=== PATIENT | male | born 1960 | race Caucasian/White ===

== ENCOUNTER → 2016-10-30 | Outpatient (CLI) | payer OTHER ==
--- NOTE | 2016-10-30 13:53 | RAD ---
APPROVED REPORT Test Type: Exercise Stress Nurse/Tech: KLAUS Baig Test Indications: Intermittent chest pain, known CV risk factors, including HTN Cardiac History: See Electronic Medical Record, Hypertension, Family history Medications: See Electronic Medical Record Medical History: See Electronic Medical Record Resting ECG: SR Resting Heart Rate: 68 bpm Resting Blood Pressure: 122/78mmHg Pretest Chest Pain: No chest pain Nurse/Tech Notes SR,S1S2, Lungs CTA, denies chest pain or SOA. Consent: The procedure was explained to the patient in lay terms. Informed consent was witnessed. Jacinto eout was entered into [employer]. History and Stress Test performed by RT Sofia (R) (N) Stress Symptoms SOA, denied CP POST EXERCISE Reason for Termination: Reached target heart rate Target HR: 139 Max HR: 143 bpm Exercise duration: 11:31 min:sec, 4 Stage Exercise capacity: 13.4METs Max Blood Pressure: 156/64mmHg Blood Pressure response to exercise: Normal blood pressure response during stress. Heart Rate response to exercise: WNL Chest Pain: No. Arrhythmia: No. ST Change: No. INTERPRETATION Stress EKG Conclusion: No acute changes were noted. The patient's target heart rate was achieved. Imaging Protocol IMAGE PROTOCOL: Rest Tc-99m/stress Tc-99m 1 day Rest: Stress: Viability: Radiopharm.Tc99m RwmiynqiwBh86m Sestamibi Kfkk97tSv 33.5mCi Img Date 10/30/2016 10/30/2016 Inj-Img [id number]. 60min. Rest Admin Site:IV - Right AntecubitalAdministrator:JEB Estrella, ARRT (R)(N) Stress Admin Site: IV - Right AntecubitalAdministrator: RT Sofia (R)(N) STRESS DATA End Diast. Vol.100.0mlAv. Heart Rate72.0bpm End Syst. Vol.27.0mlCO Index BSA0.0L/min Myocardial Fxjj034.0gEject. Inaoygqu58.0% Stress Rates Pk. Fill Rate3.20EDV/secLVtime Pk. Fill 107.96msec Pk. Empty Rate4.27ESV/secLVtime Pk. Llxif651.29msec 1/3 Pk. Fill2.04EDV/sec Stress Scores Regional WT0.00Summed WT0.00 Regional WM0.00Summed WM0.00 The rest and stress images show normal perfusion, normal contraction and thickening. LV Perf. Quant 17 Seg. SSS0.00 17 Seg. SRS0.00 17 Seg. SDS0.00 Stress Defect Extent (% LAD)0.00Rest Defect Extent (% LAD)0.00Rev. Defect Extent (% LAD)0.00 Stress Defect Extent (% LCX) 0.00Rest Defect Extent (% LCX)0.00Rev. Defect Extent (% LCX)0.00 Stress Defect Extent (% RCA)0.00Rest Defect Extent (% RCA)0.00Rev. Defect Extent (% RCA)0.00 Stress Defect Extent (% AMY)0.00Rest Defect Extent (% AMY)0.00Rev. Defect Extent (% AMY)0.00 Other Information Quality:Excellent Risk Assessment: Low Risk Conclusion 1. No evidence of stress induced EKG changes. 2. Normal perfusion at stress/rest. 3. Low risk study. EF > 70%
== END | disposition home or self-care (01) ==
LOC: NM 08:47
PROVIDERS: ATTEND Internal Medicine
DX: R07.89 Other chest pain (principal)
CPT/HCPCS: 78452; 93017; 96374; 96376; A9500

== ENCOUNTER → 2017-08-16 | Outpatient (CLI) | payer OTHER | END | disposition home or self-care (01) | LOC: KCIC MRI 13:22 | DX: S41.012A Laceration without foreign body of left shoulder, initial encounter (principal); M75.102 Unspecified rotator cuff tear or rupture of left shoulder, not specified as traumatic; X58.XXXA Exposure to other specified factors, initial encounter; Y93.89 Activity, other specified; Y92.89 Other specified places as the place of occurrence of the external cause; Y99.8 Other external cause status | CPT/HCPCS: 73221 ==